=== PATIENT | male | born 1955 | race Caucasian/White ===

== ENCOUNTER 2017-02-24 15:08 | Inpatient (IN) | payer OTHER, MEDICARE ==
[~2017-02-24] VITALS: Ht 182.9 cm; Wt 120.0 kg
[2017-02-24] MEDS ORDERED: SODIUM CHLORIDE 0.9% FLUSH 10 ML FLUSH IV FLUSH PRN (18:15)
[2017-02-24] MEDS ORDERED: LACTULOSE SYRUP 20 GM/30 ML CUP PO PRN (18:15)
[2017-02-24] MEDS ORDERED: BISACODYL 10 MG SUPP RECTAL PRN (18:15)
[2017-02-24] MEDS ORDERED: ONDANSETRON HCL 4 MG/2 ML VIAL IVP PRN (18:15)
[2017-02-24] MEDS ORDERED: ACETAMINOPHEN 325 MG TAB PO PRN (18:15)
[2017-02-24] MEDS ORDERED: TEMAZEPAM 15 MG CAP PO PRN (18:15)
[2017-02-24] MEDS ORDERED: SENNOSIDES 8.6 MG TAB PO PRN (18:15)
[2017-02-24] MEDS ORDERED: MAGNESIUM HYDROXIDE SUSP 30 ML CUP PO PRN (18:15)
[2017-02-24] MEDS ORDERED: NALOXONE HCL 0.4 MG/ML AMP IV PRN (18:15)
[2017-02-24 18:28] VITALS: BP 130/62; PULSE 60; RESP 18; TEMP 97.9; O2SAT 95
--- NOTE | 2017-02-24 19:25 | HHI.HP ---
HPI Service [facility] Hospitalists Primary Care Physician No Primary Care Physician Admission Diagnosis Diagnoses: Chief Complaint: Right second toe gangrene. Travel History International Travel<30 Days: No Contact w/Intl Traveler <30 Da: No Traveled to Known Affected Are: No History of Present Illness Mr. Zuñiga is a 62 year old male with a history of diabetes mellitus and a current resident of [facility] who presented to [facility] ER with right sided second toe gangrene. One of the caregivers at the facility apparently advised patient to seek medical attention for sometime. He started noticing right 2nd toe turning black about two weeks ago. He denies any fever, chills. He has a history of diabetic neuropathy and he reports no excessive pain from necrotic toe. Patient denies any chest pain, shortness of breath. Denies any changes in bladder or bowel patterns. Review of Systems Except as stated in HPI: all other systems reviewed are Neg Past Family Social History Past Medical History Asthma, Diabetes mellitus, bronchitis, psoriatic arthritis. Past Surgical History Tonsillectomy Reported Medications Complete medication list could not be obtained from the patient. He does mention the following, however. - Glimepiride - unknown dose. - Morphine 60mg Q12hrs - Gabapentin 800mg Q6hrs - [place] 10/325mg Q6hrs. Allergies: Coded Allergies: Coreg (Verified Allergy, Severe, Shortness of Breath, 02/24/17) Cymbalta (Verified Allergy, Severe, Psychosis, 02/24/17) Family History Both parents had COPD, heart disease. Social History Quit smoking about 20 years ago. Does not use alcohol or illicit drugs. Physical Exam Vital Signs Vital Signs Date Time Temp Pulse Resp B/P Pulse Ox O2 Delivery O2 Flow Rate FiO2 02/24/17 18:28 97.9 60 18 130/62 95 Physical Exam GENERAL: This is a well-nourished, well-developed patient, in no apparent distress. SKIN: No rashes, ecchymoses or lesions. Warm and dry. HEAD: Atraumatic. Normocephalic. No temporal or scalp tenderness. EYES: Pupils equal round and reactive. No injection or drainage. ENT: Nose without bleeding, purulent drainage or septal hematoma. Airway patent. NECK: Trachea midline. No lymphadenopathy. Supple, nontender, no meningeal signs. CARDIOVASCULAR: Regular rate and rhythm without murmurs, gallops, or rubs. No JVD. RESPIRATORY: Clear to auscultation. Breath sounds equal bilaterally. No wheezes , rales, or rhonchi. GASTROINTESTINAL: Abdomen soft, non-tender, nondistended. No guarding. MUSCULOSKELETAL: Extremities without clubbing, cyanosis, or edema. Right 2nd toe especially the tip is gangrenous. No surrounding erythema or drainage. Feet warm to touch. NEUROLOGICAL: Awake and alert. Cranial nerves II through XII intact. No focal neurological deficits. Somewhat slow speech Laboratory 02/24/2017 WBC 5.6, HGB 9.6, MCV 102, PLT 209K, Neutrophil 53.8%. INR 5.0. Na 138, K 4.1, Cl 96, Anion Gap 3, BUN 19, Cr 1.60, eGFR 44, Glucose 149, Lactic acid 0.8. AST 24, ALT 30, Alk Phos 59. Imaging Imaging studies were done at [facility] ED on 02/24/2017 Last Impressions Wrist X-Ray 02/24/17 0000 Signed Impressions: Service Date/Time: Friday, February 24, 2017 11:23 - CONCLUSION: Possible scaphoid waist fracture. This finding could be further evaluated with CT wrist. 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 Xavier Ayala MD Hand X-Ray 02/24/17 0000 Signed Impressions: Service Date/Time: Friday, February 24, 2017 11:23 - CONCLUSION: 1. Possible scaphoid waist fracture. 2. Severe osteoarthritic findings. Xavier Ayala MD Foot X-Ray 02/24/17 0000 Signed Impressions: Service Date/Time: Friday, February 24, 2017 11:23 - CONCLUSION: No radiographic evidence of osteomyelitis. Xavier Ayala MD Chest X-Ray 02/24/17 0000 Signed Impressions: Service Date/Time: Friday, February 24, 2017 11:23 - CONCLUSION: Pacer, otherwise negative. El Horne MD FACR Assessment and Plan Problem List: (1) Gangrene of toe of right foot ICD Code: I96 Status: Acute (2) GEETA (acute kidney injury) ICD Code: N17.9 Status: Acute (3) Scaphoid fracture of wrist ICD Code: S62.009A Status: Acute (4) DM (diabetes mellitus) ICD Code: E11.9 Status: Acute Assessment and Plan Mr. Zuñiga is a 62 year old male who resides at [facility], presents to the ED in [place] with two week duration of right sided second toe gangrene. He denies any fever, chills. - Gangrene of the 2nd toe of the right foot. - Gangrenous toe does not appear to be infected. - No leukocytosis, fever, chills. Lactic acid 0.8. - Will consult Podiatry for further management which may include 2nd toe amputation. - Will order DANAE to evaluate for any vascular insufficiency. - At this point, there is no evidence of active infection. - Diabetes mellitus - Patient takes Glimepiride at home. We will hold oral hypoglycemics in the hospital. - Will start Levemir 10units QHS and sliding scale insulin. - Diabetic neuropathy - Patient reports taking Gabapentin 800mg Q6hrs. - Given his Creatinine 1.60, we will reduce dose to Gabapentin 200mg TID. - Probable Acute kidney injury - Creatinine 1.60 on 02/24/2017. Baseline not known. - We will monitor BUN, Creatinine. - Supratherapeutic INR - Patient is not aware of all the medications. - INR 5.0 is likely due to Warfarin. No evidence of hepatic dysfunction. - We will try to obtain complete list of medications. - CBC, BMP, PT/INR int he AM. Full code. INR 5.0. Physician Certification 2 Midnight Certification Type: Admission for Inpatient Services Order for Inpatient Services The services are ordered in accordance with Medicare regulations or non- Medicare payer requirements, as applicable. In the case of services not specified as inpatient-only, they are appropriately provided as inpatient services in accordance with the 2-midnight benchmark. Estimated LOS (days): 2 days is the estimated time the patient will need to remain in the hospital, assuming treatment plan goals are met and no additional complications. Post-Hospital Plan: Clayton Lopez DO February 24, 2017 19:25
[2017-02-24] MEDS ORDERED: HEPARIN SODIUM - SQ 10,000 UNITS/ML VIAL SQ SCH (21:00)
[2017-02-24 21:07] VITALS: BP 135/65; PULSE 60; RESP 18; TEMP 96; O2SAT 96
[2017-02-24] MEDS: DOCUSATE SODIUM 50 MG/SENNA 8.6 MG TAB PO SCH (21:25)
[2017-02-24] MEDS: ACETAMINOPHEN/HYDROcodone 325 MG/10 MG TAB PO PRN (21:26)
[2017-02-24] MEDS: SODIUM CHLORIDE 0.9% FLUSH 10 ML FLUSH IV FLUSH SCH (21:26)
[2017-02-24] MEDS ORDERED: DEXTROSE 50% IN WATER 50 ML VIAL(D50) IV PRN (22:45)
[2017-02-24] MEDS ORDERED: GLUCAGON 1 MG/ML VIAL OTHER PRN (22:45)
[2017-02-25] VITALS (7 sets, daily range): BP systolic 132–166; BP diastolic 67–75; PULSE 60–64; RESP 14–19; TEMP 96–98.9; O2SAT 92–99
[2017-02-25] MEDS ORDERED: DOXE25CA2 PO (02:36)
[2017-02-25] MEDS ORDERED: FOLI20CA PO (02:55)
[2017-02-25] MEDS ORDERED: WARF-58 PO (02:55)
[2017-02-25] MEDS ORDERED: LEVO-154 PO (02:55)
[2017-02-25] MEDS ORDERED: WARF-60 PO ×2 (02:55)
[2017-02-25] MEDS ORDERED: GLIM1TAB PO (02:55)
[2017-02-25] MEDS ORDERED: PARO1TAB72 PO (02:55)
[2017-02-25] MEDS ORDERED: AMIT10TA6 PO (03:11)
[2017-02-25] MEDS ORDERED: MORP1TAB26 PO (03:11)
[2017-02-25] MEDS ORDERED: GABA800T PO (03:11)
[2017-02-25] MEDS ORDERED: HYDR-3583 PO (03:11)
[2017-02-25] MEDS ORDERED: FURO40TA PO (03:11)
[2017-02-25] MEDS ORDERED: BACL10TA PO (03:11)
[2017-02-25] MEDS ORDERED: APRE1TAB3 PO (03:23)
[2017-02-25] MEDS ORDERED: IPRAAER INH (03:23)
[2017-02-25] MEDS ORDERED: PRAV80TA2 PO (03:23)
[2017-02-25] MEDS ORDERED: PROT40TA PO (03:23)
[2017-02-25] MEDS ORDERED: METO50TA PO (03:23)
[2017-02-25] MEDS ORDERED: ENAL2.5T PO (03:23)
[2017-02-25] MEDS ORDERED: SYMB160A INH (03:23)
[2017-02-25] MEDS ORDERED: POTA-163 PO (03:23)
[2017-02-25] MEDS: ACETAMINOPHEN/HYDROcodone 325 MG/10 MG TAB PO PRN ×4 (04:10→22:08)
[2017-02-25 04:57] LABS: BASOPHIL # 0.1 TH/MM3 (0-0.2); BASOPHIL % 1.1 % (0.0-2.0); EOSINOPHIL # 0.4 TH/MM3 (0-0.4); HEMATOCRIT 29.9 % (39.0-51.0); HEMO FLAGS DIFF FINAL; LYMPH % 30.5 % (9.0-44.0); LYMPHOCYTE # 1.7 TH/MM3 (1.0-4.8); MEAN CELL VOLUME 96.5 FL (80.0-100.0); MEAN CORPUSCULAR HEMOGLOBIN 31.1 PG (27.0-34.0); MEAN CORPUSCULAR HGB CONC 32.2 % (32.0-36.0); NEUT % 52.4 % (16.0-70.0); PLATELET COUNT 200 TH/MM3 (150-450); RED CELL DISTRIBUTION WIDTH 15.1 % (11.6-17.2); WHITE BLOOD COUNT 5.7 TH/MM3 (4.0-11.0)
[2017-02-25 05:09] LABS: INTERNATIONAL NORMALIZED RATIO 4.4 RATIO; PROTHROMBIN TIME - PATIENT 52.3 SEC (9.8-11.6)
[2017-02-25 05:27] LABS: BICARBONATE 40.7 MEQ/L (21.0-32.0)
[2017-02-25] MEDS: INSULIN ASPART SUPPLEMENTAL SCALE SQ SCH ×4 (05:52→20:23)
[2017-02-25] MEDS: HYDROmorphone HCL PF 1 MG/ML VIAL IV PUSH PRN ×2 (07:08→13:02)
[2017-02-25] MEDS: DOCUSATE SODIUM 50 MG/SENNA 8.6 MG TAB PO SCH ×2 (08:47→20:09)
[2017-02-25] MEDS: GABAPENTIN 100 MG CAP PO SCH ×2 (08:47→13:27)
[2017-02-25] MEDS: SODIUM CHLORIDE 0.9% FLUSH 10 ML FLUSH IV FLUSH SCH ×2 (08:47→20:52)
[2017-02-25] MEDS ORDERED: BACLOFEN 10 MG TAB PO PRN (10:15)
[2017-02-25] MEDS: RESP: ALBUTEROL 2.5 MG/IPRATROPIUM 0.5 MG NEB (PRN) NEB (11:55)
--- NOTE | 2017-02-25 11:59 | HHI.PR ---
Subjective Remarks Follow up for right second toe necrotic ulcer. Patient is currently doing well. However, he complains of persistent pain. He denies any fever but reports chills. Yesterday, his necrotic toe appeared dry. However, today, there is significant drainage from the toe. Objective Vitals Vital Signs Date Time Temp Pulse Resp B/P Pulse Ox O2 Delivery O2 Flow Rate FiO2 02/25/17 08:00 96.7 60 18 134/73 99 02/25/17 00:06 96.0 64 18 132/70 97 02/24/17 21:07 96.0 60 18 135/65 96 02/24/17 18:28 97.9 60 18 130/62 95 I/O 02/24/17 02/24/17 02/24/17 02/25/17 02/25/17 02/25/17 07:00 15:00 23:00 07:00 15:00 23:00 Intake Total 0 ml 280 ml Output Total 800 ml Balance 0 ml -520 ml Intake Oral 280 ml IV Total 0 ml 0 ml Output Urine Total 800 ml Result Diagram: 02/25/17 0416 02/25/17 0416 Objective Remarks GENERAL: Alert, Oriented x 3, NAD. SKIN: Warm and dry. HEAD: Normocephalic. EYES: No scleral icterus. No injection or drainage. NECK: Supple, trachea midline. No JVD or lymphadenopathy. CARDIOVASCULAR: Regular rate and rhythm without murmurs, gallops, or rubs. RESPIRATORY: Breath sounds equal bilaterally. No accessory muscle use. GASTROINTESTINAL: Abdomen soft, non-tender, nondistended. MUSCULOSKELETAL: No cyanosis, or edema. Right second toe with necrotic tip and drainage from the toe. Rest of the toe appears to be erythematous as well. BACK: Nontender without obvious deformity. No CVA tenderness. Procedures None. A/P Problem List: (1) Gangrene of toe of right foot ICD Code: I96 Status: Acute (2) GEETA (acute kidney injury) ICD Code: N17.9 Status: Acute (3) Scaphoid fracture of wrist ICD Code: S62.009A Status: Acute (4) DM (diabetes mellitus) ICD Code: E11.9 Status: Acute Assessment and Plan Mr. Zuñiga is a 62 year old male who resides at [facility], hx of cardiomyopathy s/p AICD, Afib, DM presents to the ED in [place] with two week duration of right sided second toe gangrene. He denies any fever, chills. - Gangrene of the 2nd toe of the right foot. - Gangrenous toe appeared dry yesterday. However, it looks like a wet gangrene today. - Will start patient on Vancomycin (Pharm to dose), Cefepime 2g Q8hrs. - Podiatry consulted for further management which may include 2nd toe amputation. - DANAE to evaluate for any vascular insufficiency. - Diabetes mellitus - Patient takes Glimepiride at home. We will hold oral hypoglycemics in the hospital. - Continue Levemir 10units QHS and sliding scale insulin. - Diabetic neuropathy - Patient reports taking Gabapentin 800mg Q6hrs. - Given his Creatinine 1.60, we will reduce dose to Gabapentin 200mg TID. - Probable Acute kidney injury - Creatinine 1.60 on 02/24/2017. Baseline not known. - Creatinine 1.60 --> 1.46 today. - History of Cardiomyopathy - s/p AICD placement. - Atrial fibrillation - Supratherapeutic INR - INR 5.0 --> 4.4 today. Will continue to hold Warfarin. Will give a low dose Vitamin K, especially considering possibility of surgical intervention. - PT/INR in the AM. - Continue metoprolol 25mg BID. Full code. INR 4.4. Clayton Hare DO Feb 25, 2017 11:59 am
[2017-02-25] MEDS ORDERED: Vancomycin Consult Pharmacy 1 EA OTHER SCH (12:00)
[2017-02-25] MEDS ORDERED: PHYTONADIONE 5 MG TAB PO ONE (12:00)
[2017-02-25] MEDS ORDERED: CEFEPIME INJ 2,000 MG in SODIUM CHLORIDE 0.9% INJ 100 ML IV SCH (13:00)
[2017-02-25] MEDS: VANCOMYCIN INJ 1,750 MG in SODIUM CHLORID 0.9% 500 ML INJ 500 ML IV SCH (13:27)
--- NOTE | 2017-02-25 15:42 | RADRPT ---
EXAM DATE/TIME: 02/24/2017 00:00 [facility] COMPARISON: No previous studies available for comparison. INDICATIONS : Right Foot Second Toe Gangrene TECHNIQUE: Four-cuff ankle and brachial pressures were obtained. Pulse cuff waveform tracings of the ankles were recorded, and ankle-brachial indices were calculated. PRESSURES (mmHg): Brachial (arm): Right 134 Left IV SITE Ankle: Right 148 Left 146 DANAE: Right 1.10 Left 1.09 TBI: Right 1.00 Left 0.99 PULSED CUFF WAVEFORMS: Demonstrate decreased amplitude bilaterally. CONCLUSION: Suspect artificially elevated ABIs likely due to noncompressible vessels. Aren Terrazas MD on February 25, 2017 at 15:38 Board Certified Radiologist. This report was verified electronically.
[2017-02-25] MEDS: GABAPENTIN 400 MG CAP PO SCH (18:03)
[2017-02-25] MEDS: BUDESONIDE-FORMOTEROL 160/4.5 MCG INHALER INH SCH (20:08)
[2017-02-25] MEDS: PRAVASTATIN SOD 80 MG TAB PO SCH (20:09)
[2017-02-25] MEDS: AMITRIPTYLINE HCL 10 MG TAB PO SCH (20:09)
[2017-02-25] MEDS: POTASSIUM CHLORIDE 20 MEQ CONTROLLED RELEASE TAB PO SCH (20:09)
[2017-02-25] MEDS: METOPROLOL TARTRATE 25 MG TAB PO SCH (20:09)
[2017-02-25] MEDS: INSULIN DETEMIR 100 UNITS/ML VIAL SQ SCH (20:22)
[2017-02-25] MEDS ORDERED: ENALAPRIL MALEATE 2.5 MG TAB PO SCH (21:00)
[2017-02-25] MEDS ORDERED: APREMILAST 30 MG PO SCH (21:00)
[2017-02-26] MEDS: HYDROmorphone HCL PF 1 MG/ML VIAL IV PUSH PRN ×3 (00:34→12:23)
[2017-02-26] MEDS: CEFEPIME INJ 2,000 MG in SODIUM CHLORIDE 0.9% INJ 100 ML IV SCH ×2 (00:39→12:24)
[2017-02-26] MEDS ORDERED: LACTATED RINGER'S 1000 ML IV PRN (03:45)
[2017-02-26 04:02] VITALS: BP 162/83; PULSE 79; RESP 18; TEMP 97.3; O2SAT 96
[2017-02-26] MEDS: ACETAMINOPHEN/HYDROcodone 325 MG/10 MG TAB PO PRN (04:16)
[2017-02-26] MEDS: LEVOTHYROXINE SODIUM 75 MCG TAB PO SCH (05:02)
[2017-02-26] MEDS: LEVOTHYROXINE SODIUM 100 MCG TAB PO SCH (05:02)
[2017-02-26] MEDS: INSULIN ASPART SUPPLEMENTAL SCALE SQ SCH ×4 (07:16→22:40)
[2017-02-26] MEDS: VANCOMYCIN INJ 1,750 MG in SODIUM CHLORID 0.9% 500 ML INJ 500 ML IV SCH (07:57)
--- NOTE | 2017-02-26 07:57 | HHI.PR ---
Subjective Remarks Follow-up for right second toe diabetic ulcer. Patient is currently doing well. He reports significant pain. No fever, chills. Objective Vitals Vital Signs Date Time Temp Pulse Resp B/P Pulse Ox O2 Delivery O2 Flow Rate FiO2 02/26/17 04:02 97.3 79 18 162/83 96 02/25/17 23:57 97.3 62 18 166/71 97 02/25/17 20:11 98.9 60 18 153/73 98 02/25/17 16:00 97.3 60 14 145/67 92 02/25/17 12:00 98.3 60 19 145/75 97 02/25/17 11:55 94 Nasal Cannula 3.00 02/25/17 08:00 96.7 60 18 134/73 99 I/O 02/25/17 02/25/17 02/25/17 02/26/17 02/26/17 02/26/17 07:00 15:00 23:00 07:00 15:00 23:00 Intake Total 280 ml 450 ml 480 ml Output Total 800 ml 800 ml 1000 ml 1200 ml Balance -520 ml -350 ml -520 ml -1200 ml Intake Oral 280 ml 450 ml 480 ml IV Total 0 ml Output Urine Total 800 ml 800 ml 1000 ml 1200 ml # Bowel Movements 2 2 Result Diagram: 02/25/17 0416 02/25/17 0416 Objective Remarks GENERAL: Alert, Oriented x 3, NAD. SKIN: Warm and dry. HEAD: Normocephalic. EYES: No scleral icterus. No injection or drainage. NECK: Supple, trachea midline. No JVD or lymphadenopathy. CARDIOVASCULAR: Regular rate and rhythm without murmurs, gallops, or rubs. RESPIRATORY: Breath sounds equal bilaterally. No accessory muscle use. GASTROINTESTINAL: Abdomen soft, non-tender, nondistended. MUSCULOSKELETAL: No cyanosis, or edema. Right second toe with necrotic tip and drainage from the toe. Rest of the toe appears to be erythematous as well. BACK: Nontender without obvious deformity. No CVA tenderness. Procedures None. A/P Problem List: (1) Gangrene of toe of right foot ICD Code: I96 Status: Acute (2) GEETA (acute kidney injury) ICD Code: N17.9 Status: Acute (3) Scaphoid fracture of wrist ICD Code: S62.009A Status: Acute (4) DM (diabetes mellitus) ICD Code: E11.9 Status: Acute Assessment and Plan Mr. Zuñiga is a 62 year old male who resides at [facility], hx of cardiomyopathy s/p AICD, Afib, DM presents to the ED in [place] with two week duration of right sided second toe gangrene. He denies any fever, chills. - Gangrene of the 2nd toe of the right foot. - Continue Vancomycin (Pharm to dose), Cefepime 2g Q8hrs. - Podiatry consulted for further management which may include 2nd toe amputation. - DANAE is consistent with non-compressible vessels. - Continue home pain medications Morphine SR 60mg Q12hrs. - Continue [place] and Dilaudid PRN. - Surgery today per Podiatry. - Diabetes mellitus - Patient takes Glimepiride at home. We will hold oral hypoglycemics in the hospital. - Continue Levemir 10units QHS and sliding scale insulin. - Diabetic neuropathy - Patient reports taking Gabapentin 800mg Q6hrs. - Given his Creatinine 1.60, continue gabapentin 400 mg 3 times a day. - Probable Acute kidney injury - Creatinine 1.60 on 02/24/2017. Baseline not known. - Creatinine 1.60 --> 1.46 - History of Cardiomyopathy - s/p AICD placement. - Atrial fibrillation - Supratherapeutic INR - INR 5.0 --> 4.4 on 02/25/2017. - Continue metoprolol 25mg BID. Full code. INR 4.4 on 02/25/2017. PT/INR pending. Clayton Hare DO Feb 26, 2017 7:57 am
[2017-02-26] MEDS: BUDESONIDE-FORMOTEROL 160/4.5 MCG INHALER INH SCH ×2 (07:58→22:29)
[2017-02-26] MEDS: METOPROLOL TARTRATE 25 MG TAB PO SCH ×2 (07:59→22:26)
[2017-02-26] MEDS: GABAPENTIN 400 MG CAP PO SCH ×3 (07:59→18:00)
[2017-02-26] MEDS: PANTOPRAZOLE SOD 40 MG DELAYED RELEASE TAB PO SCH (07:59)
[2017-02-26] MEDS: PARoxetine HCL 20 MG TAB PO SCH (07:59)
[2017-02-26] MEDS: DOXEPIN HCL 25 MG CAP PO SCH (07:59)
[2017-02-26] MEDS: FOLIC ACID 1 MG TAB PO SCH (07:59)
[2017-02-26] MEDS: DOCUSATE SODIUM 50 MG/SENNA 8.6 MG TAB PO SCH ×2 (07:59→22:26)
[2017-02-26] MEDS: POTASSIUM CHLORIDE 20 MEQ CONTROLLED RELEASE TAB PO SCH ×2 (07:59→22:27)
[2017-02-26 08:00] VITALS: BP 167/80; PULSE 62; RESP 16; TEMP 98.2; O2SAT 94
[2017-02-26] MEDS: SODIUM CHLORIDE 0.9% FLUSH 10 ML FLUSH IV FLUSH SCH ×2 (08:00→22:28)
[2017-02-26] MEDS ORDERED: METOPROLOL TARTRATE 50 MG TAB PO SCH (09:00)
[2017-02-26] MEDS ORDERED: [UNRECOGNIZED DRUG - OTHER] PO SCH (09:00)
[2017-02-26] MEDS: ENALAPRIL MALEATE 5 MG TAB PO SCH ×2 (10:03→22:27)
--- NOTE | 2017-02-26 10:08 | PD.CONS ---
History of Present Illness Service Podiatry Consult Requested By [facility] Reason for Consult R 2nd toe gangrene Primary Care Physician No Primary Care Physician Diagnoses: History of Present Illness Patient seen around midnight last evening. He relates history of discoloration and gangrenous changes to R 2nd toe over the past month. He is praying for a miracle for his toe to be revived, but knows that it is in peril. Past Family Social History Allergies: Coded Allergies: Coreg (Verified Allergy, Severe, Shortness of Breath, 02/24/17) Cymbalta (Verified Allergy, Severe, Psychosis, 02/24/17) Past Medical History Asthma, Diabetes mellitus, bronchitis, psoriatic arthritis. Past Surgical History Tonsillectomy Reported Medications - Glimepiride - unknown dose. - Morphine 60mg Q12hrs - Gabapentin 800mg Q6hrs - [place] 10/325mg Q6hrs. Active Ordered Medications Current Medications Medications (Trade) Dose Ordered Sig/Arash Route Start Time Stop Time Status Last Admin (NS Flush) 2 ml UNSCH PRN IV FLUSH 02/24/17 18:15 (NS Flush) 2 ml BID IV FLUSH 02/24/17 21:00 02/26/17 08:00 (Tylenol) 650 mg Q4H PRN PO 02/24/17 18:15 (Zofran Inj) 4 mg Q6H PRN IVP 02/24/17 18:15 (Restoril) 15 mg HS PRN PO 02/24/17 18:15 (Narcan Inj) 0.4 mg UNSCH PRN IV 02/24/17 18:15 (Mary-Colace) 1 tab BID PO 02/24/17 21:00 02/26/17 07:59 (Milk Of Magnesia Liq) 30 ml Q12H PRN PO 02/24/17 18:15 (Senokot) 17.2 mg Q12H PRN PO 02/24/17 18:15 (Dulcolax Supp) 10 mg DAILY PRN RECTAL 02/24/17 18:15 (Lactulose Liq) 30 ml DAILY PRN PO 02/24/17 18:15 ([place] 10-325 Mg) 1 tab Q6H PRN PO 02/24/17 20:00 02/26/17 04:16 (Levemir Inj) 10 units HS SQ 02/25/17 21:00 02/25/17 20:22 (D50w (Vial) Inj) 50 ml UNSCH PRN IV 02/24/17 22:45 (Glucagon Inj) 1 mg UNSCH PRN OTHER 02/24/17 22:45 (Elavil) 10 mg HS PO 02/25/17 21:00 02/25/17 20:09 (Lioresal) 10 mg BID PRN PO 02/25/17 10:15 (Symbicort 160-4.5 Inh) 2 puff BID INH 02/25/17 21:00 02/26/17 07:58 (SINEquan) 25 mg DAILY PO 02/26/17 09:00 02/26/17 07:59 (Protonix) 40 mg DAILY PO 02/26/17 09:00 02/26/17 07:59 (Paxil) 20 mg DAILY PO 02/26/17 09:00 02/26/17 07:59 (KCl) 20 meq BID PO 02/25/17 21:00 02/26/17 07:59 (Pravachol) 80 mg HS PO 02/25/17 21:00 02/25/17 20:09 (Folate) 1 mg DAILY PO 02/26/17 09:00 02/26/17 07:59 (Synthroid) 100 mcg DAILY@0600 PO 02/26/17 06:00 02/26/17 05:02 Levothyroxine Sodium 75 mcg 75 mcg DAILY@0600 PO 02/26/17 06:00 02/26/17 05:02 (Vancomycin Consult Pharmacy) 0 ml @ 0 mls/hr UNSCH OTHER 02/25/17 12:00 Metoprolol Tartrate 25 mg 25 mg BID PO 02/25/17 21:00 02/26/17 07:59 (Vancomycin Inj/ NS 500 ml Inj) 517.5 ml @ 250 mls/hr Q18H IV 02/25/17 14:00 02/26/17 07:57 Miscellaneous Information SPECIFIC LAB TO BE DRAWN:VANCOMYCIN TROUGH DATE TO... ONCE ONCE .XX 02/27/17 19:45 02/27/17 19:46 (Maxipime Inj/NS Inj) 100 ml @ 200 mls/hr Q12H IV 02/26/17 01:00 02/26/17 00:39 (Neurontin) 400 mg TID PO 02/25/17 18:00 02/26/17 07:59 (Dilaudid Pf Inj) 1 mg Q4H PRN IV PUSH 02/25/17 20:00 02/26/17 05:02 Patient Own Medication PT OWN MED: OTEZLA(APREMILAST) 30 MG PO BID BID PO 02/26/17 09:00 Hold (Lr 1000 ml Inj) 1,000 ml @ 30 mls/hr Q24H PRN IV 02/26/17 03:45 03/01/17 03:44 (Vasotec) 5 mg BID PO 02/26/17 09:00 (Oramorph Sr) 60 mg Q12HR PO 02/26/17 21:00 Family History Both parents had COPD, heart disease. Social History Quit smoking about 20 years ago. Does not use alcohol or illicit drugs. Physical Exam Vital Signs Vital Signs Date Time Temp Pulse Resp B/P Pulse Ox O2 Delivery O2 Flow Rate FiO2 02/26/17 08:00 98.2 62 16 167/80 94 02/26/17 04:02 97.3 79 18 162/83 96 02/25/17 23:57 97.3 62 18 166/71 97 02/25/17 20:11 98.9 60 18 153/73 98 02/25/17 16:00 97.3 60 14 145/67 92 02/25/17 12:00 98.3 60 19 145/75 97 02/25/17 11:55 94 Nasal Cannula 3.00 Physical Exam R foot with gangrenous changes to distal half of 2nd digit and mild surrounding erythema. No edema, no erythema at MTP joint level. No purulence noted. Mild malodor noted. Mild pain per patient. Diminished pulses. Warm skin temperature otherwise to remaining foot. Laboratory Laboratory Tests Test 02/25/17 14:50 Nasal Screen MRSA (PCR) MRSA NOT DETECTED Result Diagram: 02/25/17 0416 02/25/17 0416 Assessment and Plan Assessment and Plan Gangrene R 2nd toe To OR for amputation R 2nd toe this evening NPO after breakfast Ruthie Pineda DPM Feb 26, 2017 10:08
[2017-02-26] MEDS ORDERED: MORPHINE SULFATE 60 MG CONTROLLED RELEASE TAB PO ONE (10:30)
[2017-02-26 11:33] VITALS: O2SAT 96
[2017-02-26 12:00] VITALS: BP_SYST 157; BP_SYST 160; BP_DIAS 71; BP_DIAS 74; PULSE 60; RESP 16; RESP 19; TEMP 96; TEMP 98; O2SAT 93; O2SAT 96
[2017-02-26] MEDS ORDERED: ONDANSETRON HCL 4 MG/2 ML VIAL IV PUSH ONE (12:00)
[2017-02-26] MEDS ORDERED: PROPOFOL 200 MG/20 ML AMP IV ONE (12:00)
[2017-02-26 17:36] LABS: INTERNATIONAL NORMALIZED RATIO 1.7 RATIO; PROTHROMBIN TIME - PATIENT 19.6 SEC (9.8-11.6)
[2017-02-26 18:03] VITALS: O2SAT 96
[2017-02-26] MEDS ORDERED: MIDAZOLAM HCL 2 MG/2 ML VIAL ONE (18:08)
[2017-02-26] MEDS ORDERED: FAMOTIDINE 20 MG/2 ML VIAL ONE (18:09)
--- NOTE | 2017-02-26 18:27 | HHI.PR ---
Immediate Post Op Note Procedure Date: Feb 26, 2017 Pre Op Diagnosis: R 2nd toe gangrene, infected Post Op Diagnosis: same Surgeon: Ruthie Pineda DPM Chalk Molding Machine Operator(s): staff Procedure: Amputation R 2nd toe Findings: R digit with gangrenous changed to distal half of 2nd toe. Foul odor noted. Disarticulated at 2nd MTP joint and sent to pathology. Healthy bleeding tissue noted with no purulence noted to wound prior to irrigation with 1L NS and culture of amputation site, followed by primary closure with 2-0. Dressing with xeroform, 4x4, soft roll, francisco. WBAT in surgical shoe R foot Complications: None Specimen(s) removed: R 2nd toe Culture R foot Estimated blood loss: 20mL Anesthesia: General, Local (2% lidocaine plain 10 mL) Drains: None IVF Tourniquet time (min at mmHg) n/a Patient to: PACU Patient Condition: Good Date/Time of Procedure: SEE SURGICAL CARE RECORD Ruthie Pineda DPM Feb 26, 2017 18:27
[2017-02-26] MEDS ORDERED: LIDOCAINE HCL 2% 20 ML VIAL INFIL ONE (18:36)
[2017-02-26] MEDS ORDERED: NEOMYCIN/POLYMYXIN 1 ML G.U. IRRIGANT TOPICAL ONE (18:36)
[2017-02-26] MEDS ORDERED: DO NOT ADM ANY ANTICOAGULANT DRUGS PRN (19:07)
[2017-02-26] MEDS ORDERED: fentaNYL CITRATE 250 MCG/5 ML AMP ONE (19:15)
--- NOTE | 2017-02-26 20:18 | RADRPT ---
EXAM DATE/TIME: 02/26/2017 19:36 [facility] COMPARISON: FOOT RIGHT COMPLETE ([id number]), February 24, 2017, 11:23. INDICATIONS : Post op right 2nd digit amputation MEDICAL HISTORY : Chronic obstructive pulmonary disease. Cardiovascular disease. Diabetes SURGICAL HISTORY : None. ENCOUNTER: Subsequent ACUITY: 3 days PAIN SCORE: Non-responsive. LOCATION: Right 2nd digit FINDINGS: 4 views of the right foot show interval amputation of the second toe. Amputation occurs at the articu lar level of the metatarsophalangeal joint. Remaining bony structures are unremarkable. No radiopaque foreign bodies. Soft tissues are unremarkable. CONCLUSION: Interval second toe amputation. Otherwise, unremarkable exam. Buddy Ramos Jr., MD on February 26, 2017 at 20:14 Board Certified Radiologist. This report was verified electronically.
[2017-02-26 20:45] VITALS: BP 154/74; PULSE 59; RESP 18; TEMP 96.9; O2SAT 95
[2017-02-26] MEDS: AMITRIPTYLINE HCL 10 MG TAB PO SCH (22:27)
[2017-02-26] MEDS: MORPHINE SULFATE 60 MG CONTROLLED RELEASE TAB PO SCH (22:28)
[2017-02-26] MEDS: PRAVASTATIN SOD 80 MG TAB PO SCH (22:29)
[2017-02-26] MEDS: INSULIN DETEMIR 100 UNITS/ML VIAL SQ SCH (22:39)
[2017-02-27] VITALS (7 sets, daily range): BP systolic 125–154; BP diastolic 58–75; PULSE 54–66; RESP 16–20; TEMP 96.2–98.2; O2SAT 93–98
[2017-02-27] MEDS: CEFEPIME INJ 2,000 MG in SODIUM CHLORIDE 0.9% INJ 100 ML IV SCH ×3 (01:00→20:08)
[2017-02-27] MEDS: ACETAMINOPHEN/HYDROcodone 325 MG/10 MG TAB PO PRN ×4 (01:50→21:32)
[2017-02-27] MEDS: VANCOMYCIN INJ 1,750 MG in SODIUM CHLORID 0.9% 500 ML INJ 500 ML IV SCH ×2 (02:15→21:32)
[2017-02-27 04:37] LABS: AUTOMATED NEUTROPHIL # 5.5 TH/MM3 (1.8-7.7); BASOPHIL % 0.5 % (0.0-2.0); EOSINOPHIL % 0.2 % (0.0-4.0); HEMO FLAGS DIFF FINAL; LYMPH % 10.4 % (9.0-44.0); LYMPHOCYTE # 0.7 TH/MM3 (1.0-4.8); MEAN CELL VOLUME 95.7 FL (80.0-100.0); MEAN CORPUSCULAR HEMOGLOBIN 31.7 PG (27.0-34.0); MEAN CORPUSCULAR HGB CONC 33.1 % (32.0-36.0); MONO % 2.7 % (0.0-8.0); NEUT % 86.2 % (16.0-70.0); PLATELET COUNT 199 TH/MM3 (150-450); RED BLOOD COUNT 2.93 MIL/MM3 (4.50-5.90); RED CELL DISTRIBUTION WIDTH 15.3 % (11.6-17.2); WHITE BLOOD COUNT 6.4 TH/MM3 (4.0-11.0)
[2017-02-27 04:40] LABS: INTERNATIONAL NORMALIZED RATIO 1.5 RATIO; PROTHROMBIN TIME - PATIENT 17.3 SEC (9.8-11.6)
[2017-02-27] MEDS: LEVOTHYROXINE SODIUM 75 MCG TAB PO SCH (04:46)
[2017-02-27] MEDS: LEVOTHYROXINE SODIUM 100 MCG TAB PO SCH (04:46)
[2017-02-27] MEDS: HYDROmorphone HCL PF 1 MG/ML VIAL IV PUSH PRN ×3 (04:47→22:56)
[2017-02-27] MEDS: INSULIN ASPART SUPPLEMENTAL SCALE SQ SCH ×4 (04:54→21:00)
[2017-02-27 04:59] LABS: BICARBONATE 32.3 MEQ/L (21.0-32.0); POTASSIUM 4.9 MEQ/L (3.5-5.1)
[2017-02-27] MEDS: DOCUSATE SODIUM 50 MG/SENNA 8.6 MG TAB PO SCH ×2 (09:07→20:07)
[2017-02-27] MEDS: MORPHINE SULFATE 60 MG CONTROLLED RELEASE TAB PO SCH ×2 (09:07→20:07)
[2017-02-27] MEDS: METOPROLOL TARTRATE 25 MG TAB PO SCH ×2 (09:07→20:07)
[2017-02-27] MEDS: GABAPENTIN 400 MG CAP PO SCH ×3 (09:08→16:54)
[2017-02-27] MEDS: PANTOPRAZOLE SOD 40 MG DELAYED RELEASE TAB PO SCH (09:08)
[2017-02-27] MEDS: ENALAPRIL MALEATE 5 MG TAB PO SCH ×2 (09:08→20:07)
[2017-02-27] MEDS: PARoxetine HCL 20 MG TAB PO SCH (09:08)
[2017-02-27] MEDS: DOXEPIN HCL 25 MG CAP PO SCH (09:08)
[2017-02-27] MEDS: FOLIC ACID 1 MG TAB PO SCH (09:08)
[2017-02-27] MEDS: POTASSIUM CHLORIDE 20 MEQ CONTROLLED RELEASE TAB PO SCH ×2 (09:08→20:07)
[2017-02-27] MEDS: SODIUM CHLORIDE 0.9% FLUSH 10 ML FLUSH IV FLUSH SCH ×2 (09:12→20:08)
[2017-02-27] MEDS: BUDESONIDE-FORMOTEROL 160/4.5 MCG INHALER INH SCH ×2 (09:12→20:09)
--- NOTE | 2017-02-27 09:57 | HHI.PR ---
Subjective Remarks Follow-up for right second toe diabetic ulcer. Patient had significant bleeding earlier in the morning after he tried to walk a little. During this interview, mud analysis operator came and we examined the incision together. Sutures are intact. No further surgery was recommended. Objective Vitals Vital Signs Date Time Temp Pulse Resp B/P Pulse Ox O2 Delivery O2 Flow Rate FiO2 02/27/17 08:00 97.3 60 17 145/70 97 02/27/17 04:06 97.5 60 18 129/63 96 02/27/17 00:00 97.4 66 20 154/75 93 02/26/17 20:45 96.9 59 18 154/74 95 02/26/17 19:55 98.6 60 16 150/78 98 Nasal Cannula 3 02/26/17 19:45 60 16 154/80 97 Nasal Cannula 3 02/26/17 19:30 60 15 157/75 96 Nasal Cannula 3 02/26/17 19:15 60 15 159/81 100 Nasal Cannula 4 02/26/17 19:05 98.1 60 15 164/92 98 Nasal Cannula 4 02/26/17 18:03 96 Nasal Cannula 3.00 02/26/17 12:53 20 02/26/17 12:00 98.0 60 16 160/74 96 02/26/17 12:00 96.0 60 19 157/71 93 02/26/17 11:33 96 Nasal Cannula 3.00 I/O 02/26/17 02/26/17 02/26/17 02/27/17 02/27/17 02/27/17 07:00 15:00 23:00 07:00 15:00 23:00 Intake Total 875 ml 930 ml Output Total 1200 ml 850 ml 1025 ml 1600 ml Balance -1200 ml 25 ml -95 ml -1600 ml Intake Oral 275 ml 280 ml IV Total 600 ml 50 ml Other 600 ml Output Urine Total 1200 ml 850 ml 1000 ml 1600 ml Estimated Blood Loss 25 ml # Voids 0 # Bowel Movements 1 Result Diagram: 02/27/17 0304 02/27/17 0304 Imaging Last Impressions Foot X-Ray 02/26/17 0000 Signed Impressions: Service Date/Time: Sunday, February 26, 2017 19:36 - CONCLUSION: Interval second toe amputation. Otherwise, unremarkable exam. Buddy Ramos Jr., MD Objective Remarks GENERAL: Alert, Oriented x 3, NAD. SKIN: Warm and dry. HEAD: Normocephalic. EYES: No scleral icterus. No injection or drainage. NECK: Supple, trachea midline. No JVD or lymphadenopathy. CARDIOVASCULAR: Regular rate and rhythm without murmurs, gallops, or rubs. RESPIRATORY: Breath sounds equal bilaterally. No accessory muscle use. GASTROINTESTINAL: Abdomen soft, non-tender, nondistended. MUSCULOSKELETAL: No cyanosis, or edema. Right second toe with necrotic tip and drainage from the toe. Rest of the toe appears to be erythematous as well. BACK: Nontender without obvious deformity. No CVA tenderness. Procedures None. A/P Problem List: (1) Gangrene of toe of right foot ICD Code: I96 Status: Acute (2) GEETA (acute kidney injury) ICD Code: N17.9 Status: Acute (3) Scaphoid fracture of wrist ICD Code: S62.009A Status: Acute (4) DM (diabetes mellitus) ICD Code: E11.9 Status: Acute Assessment and Plan Mr. Zuñiga is a 62 year old male who resides at [facility], hx of cardiomyopathy s/p AICD, Afib, DM presents to the ED in [place] with two week duration of right sided second toe gangrene. He denies any fever, chills. - Gangrene of the 2nd toe of the right foot. - Continue Vancomycin (Pharm to dose), Cefepime 2g Q8hrs. - DANAE is consistent with non-compressible vessels. - Continue home pain medications Morphine SR 60mg Q12hrs. - Continue [place] and Dilaudid PRN. - s/p right 2nd toe amputation. - Diabetes mellitus - Patient takes Glimepiride at home. We will hold oral hypoglycemics in the hospital. - Continue Levemir 10units QHS and sliding scale insulin. - Diabetic neuropathy - Patient reports taking Gabapentin 800mg Q6hrs. - continue gabapentin 400 mg 3 times a day. - Probable Acute kidney injury - Creatinine 1.60 on 02/24/2017. Baseline not known. - Creatinine 1.60 --> 1.46 - History of Cardiomyopathy - s/p AICD placement. - Atrial fibrillation - Supratherapeutic INR - INR 5.0 --> 4.4 on 02/25/2017. - Continue metoprolol 25mg BID. Full code. INR 1.5 on 02/27/2017 Possible discharge tomorrow. Clayton Hare DO Feb 27, 2017 09:57
--- NOTE | 2017-02-27 12:12 | PD.POD ---
Subjective Podiatric Problems POD #1 s/p amputation R 2nd toe 02/26/17 [facility] Past Med/Surg/Social History Social History Smoking Status: Former Smoker Objective Vital Signs Vital Signs Date Time Temp Pulse Resp B/P Pulse Ox O2 Delivery O2 Flow Rate FiO2 02/27/17 12:00 98.2 61 17 147/71 95 02/27/17 08:00 97.3 60 17 145/70 97 02/27/17 04:06 97.5 60 18 129/63 96 02/27/17 00:00 97.4 66 20 154/75 93 02/26/17 20:45 96.9 59 18 154/74 95 02/26/17 19:55 98.6 60 16 150/78 98 Nasal Cannula 3 02/26/17 19:45 60 16 154/80 97 Nasal Cannula 3 02/26/17 19:30 60 15 157/75 96 Nasal Cannula 3 02/26/17 19:15 60 15 159/81 100 Nasal Cannula 4 02/26/17 19:05 98.1 60 15 164/92 98 Nasal Cannula 4 02/26/17 18:03 96 Nasal Cannula 3.00 02/26/17 12:53 20 Coded Allergies: Coreg (Verified Allergy, Severe, Shortness of Breath, 02/24/17) Cymbalta (Verified Allergy, Severe, Psychosis, 02/24/17) Physical Exam Remarks R foot bandage with bloody strikethrough at surgical site area. Bandage removed and all sutures intact. Minimal bloody drainage noted from wound at this time. Assessment & Plan A/P POD #1 s/p amputation R 2nd toe 02/26/17 [facility] R foot bandage was removed last night due to bleeding by Charge nurse a few hours previously after patient had gotten up to walk and there was noted to be significant strikethrough. Instead of calling the doctor and reinforcing bandage, the dressing was removed and then reapplied, then doctor was called 45 minutes after the fact and told this information and that some sutures had "popped open". Patient was then made NPO again after midnight and placed on OR schedule today, and patient was examined by me prior to OR time and found to have all sutures intact and no need to return to OR. Wound area cleansed and dry sterile dressing applied to R foot with 4x4, abd pad, cling, francisco. Dressing is to be reinforced if strikethrough occurs. I explained to patient that bleeding after surgery is a normal occurrence and there is no need to be alarmed. Patient told not to put any pressure on foot and stay off foot today. Podiatry OK with d/c tomorrow on broad spectrum oral abx and follow up in 1 week for dressing change. Ok to be WBAT R foot in surgical shoe to heel only with walker for assistance. Keep foot clean and bandage dry/intact. Ruthie Pineda DPM Feb 27, 2017 12:12
[2017-02-27] MEDS ORDERED: PHARMACY ORDERED LAB ONE (19:45)
[2017-02-27] MEDS: PRAVASTATIN SOD 80 MG TAB PO SCH (20:07)
[2017-02-27] MEDS: AMITRIPTYLINE HCL 10 MG TAB PO SCH (20:07)
[2017-02-27] MEDS: INSULIN DETEMIR 100 UNITS/ML VIAL SQ SCH (21:39)
[2017-02-28] VITALS (8 sets, daily range): BP systolic 119–157; BP diastolic 58–77; PULSE 57–60; RESP 16–18; TEMP 96.4–98.1; O2SAT 95–100
[2017-02-28] MEDS: RESP: ALBUTEROL 2.5 MG/IPRATROPIUM 0.5 MG NEB (PRN) NEB ×2 (02:56→19:15)
[2017-02-28] MEDS: HYDROmorphone HCL PF 1 MG/ML VIAL IV PUSH PRN (03:09)
[2017-02-28] MEDS: ACETAMINOPHEN/HYDROcodone 325 MG/10 MG TAB PO PRN ×4 (05:13→21:09)
[2017-02-28] MEDS: LEVOTHYROXINE SODIUM 100 MCG TAB PO SCH (05:13)
[2017-02-28] MEDS: CEFEPIME INJ 2,000 MG in SODIUM CHLORIDE 0.9% INJ 100 ML IV SCH ×3 (05:13→20:01)
[2017-02-28] MEDS: LEVOTHYROXINE SODIUM 75 MCG TAB PO SCH (05:13)
[2017-02-28] MEDS: INSULIN ASPART SUPPLEMENTAL SCALE SQ SCH ×4 (05:16→20:11)
[2017-02-28] MEDS ORDERED: BACT800T5 PO (08:03)
[2017-02-28] MEDS ORDERED: CEFU1TAB20 PO (08:03)
--- NOTE | 2017-02-28 08:07 | HHI.DS ---
Discharge Summary Admission Date February 24, 2017 at 6:35 pm Discharge Date: Mar 01, 2017 Admitting Diagnosis (1) Gangrene of toe of right foot ICD Code: I96 Diagnosis: Principal (2) GEETA (acute kidney injury) ICD Code: N17.9 Diagnosis: Principal (3) Scaphoid fracture of wrist ICD Code: S62.009A (4) DM (diabetes mellitus) ICD Code: E11.9 Procedures Amputation R 2nd toe 02/26/2017 Brief History - From Admission Mr. Zuñiga is a 62 year old male with a history of diabetes mellitus and a current resident of [facility] who presented to [facility] ER with right sided second toe gangrene. One of the caregivers at the facility apparently advised patient to seek medical attention for sometime. He started noticing right 2nd toe turning black about two weeks ago. He denies any fever, chills. He has a history of diabetic neuropathy and he reports no excessive pain from necrotic toe. Patient denies any chest pain, shortness of breath. Denies any changes in bladder or bowel patterns. CBC/BMP: 02/27/17 0304 02/27/17 0304 Significant Findings Laboratory Tests Test 02/26/17 02/27/17 02/27/17 16:48 03:04 20:30 Prothrombin Time 19.6 SEC 17.3 SEC (9.8-11.6) (9.8-11.6) Red Blood Count 2.93 MIL/MM3 (4.50-5.90) Hemoglobin 9.3 GM/DL (13.0-17.0) Hematocrit 28.0 % (39.0-51.0) Mean Platelet Volume 6.9 FL (7.0-11.0) Neutrophils (%) (Auto) 86.2 % (16.0-70.0) Lymphocytes # (Auto) 0.7 TH/MM3 (1.0-4.8) Carbon Dioxide Level 32.3 MEQ/L (21.0-32.0) Anion Gap 3 MEQ/L (5-15) Estimat Glomerular Filtration 67 ML/MIN (>89) Rate Random Glucose 137 MG/DL (74-106) Vancomycin Level Trough 14.7 MCG/ML (5.0-10.0) PE at Discharge GENERAL: Alert, Oriented x 3, NAD. SKIN: Warm and dry. HEAD: Normocephalic. EYES: No scleral icterus. No injection or drainage. NECK: Supple, trachea midline. No JVD or lymphadenopathy. CARDIOVASCULAR: Regular rate and rhythm without murmurs, gallops, or rubs. RESPIRATORY: Breath sounds equal bilaterally. No accessory muscle use. GASTROINTESTINAL: Abdomen soft, non-tender, nondistended. MUSCULOSKELETAL: No cyanosis, or edema. Right second toe with necrotic tip and drainage from the toe. Rest of the toe appears to be erythematous as well. BACK: Nontender without obvious deformity. No CVA tenderness. Pt update on day of discharge Patient is doing well. No fever, chills. Denies any acute concerns. Podiatry recommended discharge with 1 week follow up. Podiatry also recommended PO abx for one week. Hospital Course Mr. Zuñiga is a 62 year old male who resides at [facility], hx of cardiomyopathy s/p AICD, Afib, DM presents to the ED in [place] with two week duration of right sided second toe gangrene. He denies any fever, chills. - Gangrene of the 2nd toe of the right foot. - Continue Vancomycin (Pharm to dose), Cefepime 2g Q8hrs. - DANAE is consistent with non-compressible vessels. - Continue home pain medications Morphine SR 60mg Q12hrs. - Continue Christine and Dilaudid PRN. - s/p right 2nd toe amputation. - On discharge we will provide oral abx - Bactrim and Cefuroxime for 7 days. - Diabetes mellitus - Patient takes Glimepiride at home. We will hold oral hypoglycemics in the hospital. - Continue Levemir 10units QHS and sliding scale insulin. - Diabetic neuropathy - Patient reports taking Gabapentin 800mg Q6hrs. - continue gabapentin 400 mg 3 times a day. - Probable Acute kidney injury - Creatinine 1.60 on 02/24/2017. Baseline not known. - Creatinine 1.60 --> 1.46 - History of Cardiomyopathy - s/p AICD placement. - Atrial fibrillation - Supratherapeutic INR - INR 5.0 on admission. - Continue metoprolol 25mg BID. - Start Warfarin 3mg Qday . Pt Condition on Discharge: Good Discharge Disposition: Discharge Home Discharge Time: > 30 minutes Discharge Instructions DIET: Follow Instructions for: Diabetic Diet Activities you can perform: Regular-No Restrictions Other Activity Instructions: WBAT R foot in surgical shoe to heel only with walker for assistance. Keep foot clean and bandage dry/intact. Follow up Referrals: Podiatry - 1 Week with Ruthie Pineda DPM New Medications: Cefuroxime (Cefuroxime) 500 Mg Tab 500 MG PO BID Infection #14 Ref 0 TAB Sulfamethoxazole-Trimethoprim (Bactrim DS) 800-160 Mg Tab 1 TAB PO BID Infection #14 Ref 0 TAB Hydrocodone-Acetaminophen (Hydrocodone-Acetaminophen) 10-325 mg Tab 1 TAB PO Q4H PRN PAIN SCALE 5 TO 10 #30 TAB Morphine ER (Morphine ER) 60 Mg Tab 60 MG PO Q12HR Pain Management #14 TAB Continued Medications: Amitriptyline (Amitriptyline) 10 Mg Tab 10 MG PO HS Control Depression Ref 0 TAB Apremilast (Otezla) 30 Mg Tab 30 MG PO BID Baclofen (Baclofen) 10 Mg Tab 10 MG PO BID PRN PAIN SCALE 1 TO 10 Ref 0 TAB Budesonide-Formoterol Inh (Symbicort Inh) 160-4.5 Mcg/Act Aero 2 PUFF INH BID #1 Ref 0 INHALER Doxepin (Doxepin) 25 Mg Cap 25 MG PO DAILY #30 Ref 0 CAP Enalapril (Enalapril) 2.5 Mg Tab 2.5 MG PO BID Ref 0 TAB Folic Acid (Folic Acid) 20 Mg Cap 1 MG PO DAILY Furosemide (Furosemide) 40 Mg Tab 40 MG PO BID 1 AND 1/2 TABLETS Ref 0 TAB Gabapentin (Gabapentin) 800 Mg Tab 800 MG PO QID Ref 0 TAB Glimepiride (Glimepiride) 1 Mg Tab 1 MG PO DAILY Take with breakfast or first main meal Blood Sugar Management Ref 0 TAB Hydrocodone-Acetaminophen (Hydrocodone-Acetaminophen) 10-325 mg Tab 1 TAB PO Q6H PRN PAIN Ref 0 TAB Ipratropium-Albuterol Inh (Combivent Respimat Inh) 20-100 Nursing Home/Act Aero 2 PUFF INH QID Asthma Management #1 Ref 0 INHALER Levothyroxine (Levothyroxine) 175 Mcg Tab 175 MCG PO DAILY TAB Metoprolol Tartrate (Metoprolol Tartrate) 50 Mg Tab 50 MG PO DAILY #30 Ref 0 TAB Morphine ER (Morphine ER) 60 Mg Tab 60 MG PO Q12HR Pain Management Ref 0 TAB Pantoprazole (Protonix) 40 Mg Tab 40 MG PO DAILY Reflux #30 Ref 0 TAB Paroxetine (Paroxetine) 20 Mg Tab 20 MG PO DAILY Ref 0 TAB Potassium Chloride ER (Potassium Chloride ER) 20 Meq Tab 20 MEQ PO BID Electrolyte Replacement Ref 0 TAB Pravastatin (Pravastatin) 80 Mg Tab 80 MG PO HS Cholesterol Management Ref 0 TAB Warfarin (Warfarin) 3 Mg Tab 3 MG PO DAILY Blood Clot Prevention Ref 0 TAB Warfarin (Warfarin) 6 Mg Tab 6 MG PO WEDNESDAY Blood Clot Prevention Ref 0 TAB Clayton Hare DO Feb 28, 2017 8:07 am
[2017-02-28] MEDS: DOCUSATE SODIUM 50 MG/SENNA 8.6 MG TAB PO SCH ×2 (09:12→20:01)
[2017-02-28] MEDS: PANTOPRAZOLE SOD 40 MG DELAYED RELEASE TAB PO SCH (09:12)
[2017-02-28] MEDS: ENALAPRIL MALEATE 5 MG TAB PO SCH ×2 (09:12→20:00)
[2017-02-28] MEDS: DOXEPIN HCL 25 MG CAP PO SCH (09:12)
[2017-02-28] MEDS: POTASSIUM CHLORIDE 20 MEQ CONTROLLED RELEASE TAB PO SCH ×2 (09:16→20:00)
[2017-02-28] MEDS: GABAPENTIN 400 MG CAP PO SCH ×3 (09:16→16:36)
[2017-02-28] MEDS: MORPHINE SULFATE 60 MG CONTROLLED RELEASE TAB PO SCH ×2 (09:16→20:01)
[2017-02-28] MEDS: FOLIC ACID 1 MG TAB PO SCH (09:16)
[2017-02-28] MEDS: BUDESONIDE-FORMOTEROL 160/4.5 MCG INHALER INH SCH ×2 (09:16→20:02)
[2017-02-28] MEDS: PARoxetine HCL 20 MG TAB PO SCH (09:16)
[2017-02-28] MEDS: METOPROLOL TARTRATE 25 MG TAB PO SCH ×2 (09:16→20:01)
[2017-02-28] MEDS: SODIUM CHLORIDE 0.9% FLUSH 10 ML FLUSH IV FLUSH SCH ×2 (09:17→20:01)
[2017-02-28] MEDS ORDERED: ACETAMINOPHEN/HYDROcodone 325 MG/10 MG TAB PO PRN (14:00)
--- NOTE | 2017-02-28 14:11 | HHI.PR ---
Subjective Remarks Follow-up for right second toe diabetic ulcer. Patient is doing well. No further bleeding from the toe. He stated that he prefers to go back to [facility]. Does not want to SNF. However, later on, I was informed that patient agrees to go to SNF. Objective Vitals Vital Signs Date Time Temp Pulse Resp B/P Pulse Ox O2 Delivery O2 Flow Rate FiO2 02/28/17 12:00 97.2 60 17 154/73 96 02/28/17 08:44 97 Nasal Cannula 3.00 02/28/17 08:00 96.9 60 16 136/68 96 02/28/17 02:58 98 Nasal Cannula 3.00 02/28/17 00:00 98.1 60 17 119/58 95 02/27/17 20:00 97.1 54 17 125/58 95 02/27/17 16:00 96.2 59 16 132/66 96 I/O 02/27/17 02/27/17 02/27/17 02/28/17 02/28/17 02/28/17 07:00 15:00 23:00 07:00 15:00 23:00 Intake Total 340 ml 340 ml 840 ml Output Total 1600 ml 600 ml 200 ml 400 ml Balance -1600 ml -260 ml 140 ml 440 ml Intake Oral 240 ml 240 ml 240 ml IV Total 100 ml 100 ml 600 ml Output Urine Total 1600 ml 600 ml 200 ml 400 ml # Voids 1 # Bowel Movements 0 Result Diagram: 02/27/17 0304 02/27/17 0304 Imaging Last Impressions Foot X-Ray 02/26/17 0000 Signed Impressions: Service Date/Time: Sunday, February 26, 2017 19:36 - CONCLUSION: Interval second toe amputation. Otherwise, unremarkable exam. Buddy Ramos Jr., MD Objective Remarks GENERAL: Alert, Oriented x 3, NAD. SKIN: Warm and dry. HEAD: Normocephalic. EYES: No scleral icterus. No injection or drainage. NECK: Supple, trachea midline. No JVD or lymphadenopathy. CARDIOVASCULAR: Regular rate and rhythm without murmurs, gallops, or rubs. RESPIRATORY: Breath sounds equal bilaterally. No accessory muscle use. GASTROINTESTINAL: Abdomen soft, non-tender, nondistended. MUSCULOSKELETAL: No cyanosis, or edema. Right second toe with necrotic tip and drainage from the toe. Rest of the toe appears to be erythematous as well. BACK: Nontender without obvious deformity. No CVA tenderness. Procedures None. A/P Problem List: (1) Gangrene of toe of right foot ICD Code: I96 Status: Acute (2) GEETA (acute kidney injury) ICD Code: N17.9 Status: Acute (3) Scaphoid fracture of wrist ICD Code: S62.009A Status: Acute (4) DM (diabetes mellitus) ICD Code: E11.9 Status: Acute Assessment and Plan Mr. Zuñiga is a 62 year old male who resides at [facility], hx of cardiomyopathy s/p AICD, Afib, DM presents to the ED in [place] with two week duration of right sided second toe gangrene. He denies any fever, chills. - Gangrene of the 2nd toe of the right foot. - Continue Vancomycin (Pharm to dose), Cefepime 2g Q8hrs. - DANAE is consistent with non-compressible vessels. - Continue home pain medications Morphine SR 60mg Q12hrs. - Continue Belden and Dilaudid PRN. - s/p right 2nd toe amputation. - On discharge we will provide oral abx - Bactrim and Cefuroxime for 7 days. - Diabetes mellitus - Patient takes Glimepiride at home. We will hold oral hypoglycemics in the hospital. - Continue Levemir 10units QHS and sliding scale insulin. - Diabetic neuropathy - Patient reports taking Gabapentin 800mg Q6hrs. - continue gabapentin 400 mg 3 times a day. - Probable Acute kidney injury - Creatinine 1.60 on 02/24/2017. Baseline not known. - Creatinine 1.60 --> 1.46 - History of Cardiomyopathy - s/p AICD placement. - Atrial fibrillation - Supratherapeutic INR - INR 5.0 on admission. - Continue metoprolol 25mg BID. - Start Warfarin 3mg Qday today. Full code. INR 1.5 on 02/27/2017. Start Warfarin today. Discharge when SNF arrangement made. Clayton Hare DO Feb 28, 2017 14:11
[2017-02-28] MEDS: VANCOMYCIN INJ 1,750 MG in SODIUM CHLORID 0.9% 500 ML INJ 500 ML IV SCH (14:13)
[2017-02-28] MEDS: WARFARIN SOD 3 MG TAB PO SCH (16:37)
[2017-02-28] MEDS: PRAVASTATIN SOD 80 MG TAB PO SCH (20:00)
[2017-02-28] MEDS: AMITRIPTYLINE HCL 10 MG TAB PO SCH (20:01)
[2017-02-28] MEDS: INSULIN DETEMIR 100 UNITS/ML VIAL SQ SCH (20:11)
[2017-03-01] VITALS: BP 134/71; PULSE 72; RESP 17; TEMP 96.7; O2SAT 100
[2017-03-01] MEDS: ACETAMINOPHEN/HYDROcodone 325 MG/10 MG TAB PO PRN ×5 (01:19→17:47)
[2017-03-01] MEDS: CEFEPIME INJ 2,000 MG in SODIUM CHLORIDE 0.9% INJ 100 ML IV SCH ×2 (04:22→13:21)
[2017-03-01] MEDS: LEVOTHYROXINE SODIUM 75 MCG TAB PO SCH (05:22)
[2017-03-01] MEDS: LEVOTHYROXINE SODIUM 100 MCG TAB PO SCH (05:22)
[2017-03-01] MEDS: INSULIN ASPART SUPPLEMENTAL SCALE SQ SCH ×3 (05:23→16:00)
[2017-03-01] MEDS: RESP: ALBUTEROL 2.5 MG/IPRATROPIUM 0.5 MG NEB (PRN) NEB (05:48)
[2017-03-01] MEDS ORDERED: PHARMACY ORDERED LAB ONE (07:45)
[2017-03-01 08:00] VITALS: BP 144/67; PULSE 60; RESP 17; TEMP 97; O2SAT 95
[2017-03-01] MEDS: PANTOPRAZOLE SOD 40 MG DELAYED RELEASE TAB PO SCH (09:17)
[2017-03-01] MEDS: GABAPENTIN 400 MG CAP PO SCH ×3 (09:17→17:14)
[2017-03-01] MEDS: DOCUSATE SODIUM 50 MG/SENNA 8.6 MG TAB PO SCH (09:17)
[2017-03-01] MEDS: ENALAPRIL MALEATE 5 MG TAB PO SCH (09:17)
[2017-03-01] MEDS: PARoxetine HCL 20 MG TAB PO SCH (09:17)
[2017-03-01] MEDS: FOLIC ACID 1 MG TAB PO SCH (09:17)
[2017-03-01] MEDS: MORPHINE SULFATE 60 MG CONTROLLED RELEASE TAB PO SCH (09:18)
[2017-03-01] MEDS: POTASSIUM CHLORIDE 20 MEQ CONTROLLED RELEASE TAB PO SCH (09:18)
[2017-03-01] MEDS: DOXEPIN HCL 25 MG CAP PO SCH (09:18)
[2017-03-01] MEDS: METOPROLOL TARTRATE 25 MG TAB PO SCH (09:18)
[2017-03-01] MEDS: SODIUM CHLORIDE 0.9% FLUSH 10 ML FLUSH IV FLUSH SCH (09:19)
[2017-03-01] MEDS: BUDESONIDE-FORMOTEROL 160/4.5 MCG INHALER INH SCH (09:21)
[2017-03-01] MEDS: VANCOMYCIN INJ 1,750 MG in SODIUM CHLORID 0.9% 500 ML INJ 500 ML IV SCH (09:47)
[2017-03-01 12:00] VITALS: BP 150/71; PULSE 60; RESP 18; TEMP 97.2; O2SAT 97
[2017-03-01] MEDS ORDERED: MORP1TAB26 PO (13:05)
[2017-03-01] MEDS ORDERED: HYDR-3583 PO (13:05)
[2017-03-01 13:35] VITALS: O2SAT 99
[2017-03-01 16:00] VITALS: BP 143/87; PULSE 60; RESP 19; TEMP 98.3; O2SAT 98
[2017-03-01] MEDS: WARFARIN SOD 3 MG TAB PO SCH (17:14)
[2017-03-02] MEDS ORDERED: PHARMACY ORDERED LAB ONE (01:45)
--- NOTE | 2017-03-06 05:46 | MP ---
cc: RUTHIE RHODES DPM DATE OF SURGERY: 02/26/2017 The patient is a 62-year-old male who presented to the emergency department with a history of discoloration gangrenous changes to the right second toe over about a month period of time. He has a past medical history of diabetes and does not really relate any other history of wounds to the feet. He denies fever, chills and shortness of breath or chest pain or Calf pain at this time. I discussed with the patient after reviewing the soft tissue to the right great toe and that the distal 2/3rds of the digit was necrotic. I discussed with the patient that it would be in his best interest to consider undergoing amputation of the right great toe. I discussed risks, benefits and potential complications with the patient and he agreed to move forward with surgery, stating that if he prayed and a miracle did not occur that he was agreed to undergo surgery for a amputation but he was hopeful that when I took the bandage off a miracle would have occurred and his toe would be revived. I discussed with the patient that if that did not happen was he okay to move forward with an amputation and he stated that he was. The patient was seen in preop holding by myself, nursing staff and Anesthesia where the correct patient side and site were all confirmed to be correct and the right second toe. He was then taken back to the surgical suite, placed in supine position where attention was directed to the right foot. It was prepped and draped in normal sterile fashion, followed by attention directed to the dorsal aspect of the right second toe. The right digit was found to be gangrenous to the distal 2/3rds of the digit with foul odor noted and mild purulent drainage to the distal tip of the digit was disarticulated, with two semi elliptical incisions of the second metatarsophalangeal joint which was sent to pathology. The digit was sent to pathology healthy bleeding tissue was noted with no purulence and no necrotic tissue with a healthy white cartilage cap to the second metatarsal head the area was copiously irrigated with 1 liter of normal sterile saline and a culture was taken of the amputation site followed by primary closure with 2-0 nylon suture and a dressing consisting of Xeroform, 4x4, soft roll and Eriberto was applied to the right lower extremity. He tolerated procedure and anesthesia well without complications and was taken back to PACU with vital signs stable and vascular status intact to the remainder of the right foot. He will be weightbearing as tolerated and the right foot in surgical shoe in 24 hours. SHORT OPERATIVE NOTE: SURGEON Ruthie Rhodes MD. PROJECT ADMINISTRATIVE ASSISTANT: Staff. PREOPERATIVE DIAGNOSIS: Gangrene right second toe. POSTOPERATIVE DIAGNOSIS Gangrene right second toe. PROCEDURE: Amputation right second toe. PATHOLOGY: Right second toe to pathology and culture right foot. ANESTHESIA General endotracheal anesthesia plus 10 mL of 2% lidocaine plain and local block. ESTIMATED BLOOD LOSS Minimal. TOURNIQUET TIME: No tourniquet utilized COMPLICATIONS None. CONDITION: Condition stable to PACU. DISPOSITION Weightbearing as tolerated right foot in surgical shoe after 24 hours and the patient will follow up in clinic in 1 week for dressing change, in 2 weeks for evaluation for suture removal and will be on antibiotics as per culture results. Ruthie MARI/sander /5:34 PM /5:20 AM
== END 2017-03-01 17:58 | DRG 256 ==
LOC: NEDDLT 15:08 → HCIS 18:35 → N07A 20:49
PROVIDERS: ADMIT Hospitalist; ATTEND Hospitalist
PROC: 0Y6R0Z0 Detachment at Right 2nd Toe, Complete, Open Approach (ICD-10-PCS; principal; 2017-02-26 18:11)
DX: E11.52 Type 2 diabetes mellitus with diabetic peripheral angiopathy with gangrene (principal); I42.9 Cardiomyopathy, unspecified; E11.22 Type 2 diabetes mellitus with diabetic chronic kidney disease; N17.9 Acute kidney failure, unspecified; N18.3 Chronic kidney disease, stage 3 (moderate); E78.5 Hyperlipidemia, unspecified; I12.9 Hypertensive chronic kidney disease with stage 1 through stage 4 chronic kidney disease, or unspecified chronic kidney disease; J44.9 Chronic obstructive pulmonary disease, unspecified; I48.91 Unspecified atrial fibrillation; E66.9 Obesity, unspecified; M79.7 Fibromyalgia; G89.29 Other chronic pain; R79.1 Abnormal coagulation profile; K21.9 Gastro-esophageal reflux disease without esophagitis; L40.50 Arthropathic psoriasis, unspecified; E11.42 Type 2 diabetes mellitus with diabetic polyneuropathy; E11.621 Type 2 diabetes mellitus with foot ulcer; L97.519 Non-pressure chronic ulcer of other part of right foot with unspecified severity; Z99.81 Dependence on supplemental oxygen; Z95.810 Presence of automatic (implantable) cardiac defibrillator; Z87.891 Personal history of nicotine dependence; Z79.84 Long term (current) use of oral hypoglycemic drugs; Z68.35 Body mass index [BMI] 35.0-35.9, adult
CPT/HCPCS: 71010; 73110; 73130; 73630; 80048; 80053; 80202; 81001; 82948; 83605; 84484; 85025; 85610; 85730; 86403; 87015; 87040; 87070; 87077; 87102; 87116; 87186; 87205; 87206; 87641; 88305; 88311; 93005; 93922; 94640; 94664; 96365; J0692; J1170; J1644; J1815; J2250; J2405; J3010; J3370; J7040; J7050; L3260